=== PATIENT | female | born 1930 | race Native Hawaiian/Other Pacific Islander ===

== ENCOUNTER 2016-08-11 08:24 | Outpatient (CLI) | payer OTHER ==
[~2016-08-11 08:24] MED LIST: CELEBREX200 MG PO; CIPRO500 MG PO; Z-PAK PO
[2016-08-11 09:06] LABS: PLATELET COUNT 244 K/uL (152-353)
[2016-08-11 09:33] LABS: POTASSIUM 4.6 mmol/L (3.6-5.2)
== END 2016-08-11 09:30 | disposition home or self-care (01) ==
LOC: LABW 08:24
PROVIDERS: Internal Medicine
DX: R41.82 Altered mental status, unspecified (principal)
CPT/HCPCS: 36415; 80053; 81000; 82607; 84439; 84443; 85027

== ENCOUNTER 2016-08-19 08:11 | Outpatient (CLI) | payer OTHER | END 2016-08-19 19:06 | disposition home or self-care (01) | LOC: CT 08:11 | DX: R41.82 Altered mental status, unspecified (principal) ==